=== PATIENT | male | born 1995 | race Caucasian/White ===

== ENCOUNTER 2023-01-09 12:54 | Emergency (ER) | payer OTHER, SELFPAY ==
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
--- NOTE | ~2023-01-09 | XR_ITS ---
Examination: Left shoulder and chest. CLINICAL INDICATION: Pain. COMPARISON: None. TECHNIQUE: left shoulder 3 views. Chest 2 views. FINDINGS: CHEST: The lungs are expanded and clear of acute process. Heart size and progress clarities normal. No gross bony abnormality seen. LEFT SHOULDER: There is no visible acute fracture, dislocation or subluxation seen. The soft tissues are normal. The AC joint is normal. XR/XR shoulder LT min 2V IMPRESSION: 1. Unremarkable chest exam. 2. Unremarkable left shoulder exam.
--- NOTE | ~2023-01-09 | XR_ITS ---
Examination: Left shoulder and chest. CLINICAL INDICATION: Pain. COMPARISON: None. TECHNIQUE: left shoulder 3 views. Chest 2 views. FINDINGS: CHEST: The lungs are expanded and clear of acute process. Heart size and progress clarities normal. No gross bony abnormality seen. LEFT SHOULDER: There is no visible acute fracture, dislocation or subluxation seen. The soft tissues are normal. The AC joint is normal. XR/XR chest 2V IMPRESSION: 1. Unremarkable chest exam. 2. Unremarkable left shoulder exam.
[2023-01-09 13:23] VITALS: BP 117/81; PULSE 71; RESP 16; TEMP 36.7; O2SAT 98; BMI 31.2
--- NOTE | 2023-01-09 13:26 | ECG_ITS ---
Test Reason : burry vision Blood Pressure : / mmHG Vent. Rate : 079 BPM Atrial Rate : 079 BPM P-R Int : 124 ms QRS Dur : 094 ms QT Int : 356 ms P-R-T Axes : 018 071 041 degrees QTc Int : 408 ms Normal sinus rhythm Normal ECG No previous ECGs available Referred By: Shahid Allred Electronically Signed By:MICHELLE BHATT MD
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
[2023-01-09] MEDS: Fluorescein Sodium STRIP 1 STRIP EYE-BOTH (16:27)
[2023-01-09] MEDS: Tetracaine HCl/PF 0.5% Oph Sol 4 ML DROPS 1 DROP EYE-BOTH (16:27)
== END 2023-01-09 16:28 | disposition home or self-care (01) ==
PROVIDERS: Emergency Provider Student in an Organized Health Care Education/Training Program
DX: S09.90XA Unspecified injury of head, initial encounter (principal); V43.52XA Car driver injured in collision with other type car in traffic accident, initial encounter; M25.512 Pain in left shoulder; R07.89 Other chest pain; Y93.89 Activity, other specified; Y92.414 Local residential or business street as the place of occurrence of the external cause; Y99.9 Unspecified external cause status
CPT/HCPCS: 70450; 71046; 72125; 73030; 93005; 99283; 99284